=== PATIENT | female | born 1930 | race Caucasian/White ===

== ENCOUNTER → 2016-11-21 | Outpatient (CLI) | payer MEDICARE, BC ==
[~2016-11-21] MED LIST: ADVAIR 250/501 EA INH; ADVAIR INH; ALEVE220 M1 PO; ATENOLOL25 MG PO; B COMPLEX1 EACH PO; B12100 MC1 PO; BENADRYL ALLERG25 M5 PO; BIOTIN5000 MCG PO; BLOOD PRESSURE MED; BUMETANIDE1 MG PO; BYSTOLIC5 MG PO; CO Q10100 MG PO; DIOVAN 12.5 MG-1 TAB PO; DIOVAN HCT 12.51 TA6 PO; DIOVAN160 MG PO; DULE1ARO1 INH; DUONEB 3 MG/3 ML3 M1 INH; FOLGARD TABLET1 EACH PO; GLUCOSAMINE1000 MG PO; HYDR12.5C PO; KEFLEX250 MG PO; LODINE200 MG PO; MELADOX3 MG PO; MUCINEX1200 MG PO; MULTIPLE VITAMI1 CAP PO; NEURONTIN300 MG PO; NORVASC5 MG PO; OMEGA-31000 M1 PO; PERCOCET 325 MG1 TA3 PO; PREDNISONE20 MG PO; PROTONIX40 MG PO; Quinapril HCl20 MG PO; TUMERIC PO; VITAMIN D2000 IU PO; VOLTAREN50 M1 PO; ZYRTEC10 MG PO
== END | disposition home or self-care (01) ==
LOC: LAB 16:14 → RAD 16:14
DX: M19.032 Primary osteoarthritis, left wrist (principal); M19.031 Primary osteoarthritis, right wrist

== ENCOUNTER → 2017-02-14 | Outpatient (CLI) | payer MEDICARE, BC ==
[2017-02-14 14:15] LABS: HEMATOCRIT 39.3 % (37.0-47.0); HEMOGLOBIN 13.4 g/dl (12.0-16.0); MEAN CELL VOLUME 83.8 fl (81.0-99.0); MEAN CORPUSCULAR HGB 28.6 pg (27.0-31.0); MEAN CORPUSCULAR HGB CONC 34.1 g/dl (33.0-37.0); MEAN PLATELET VOLUME 9.8 fl (9.6-12.3); PLATELET COUNT AUTOMATED 116 10*3/uL (130-400); RED BLOOD COUNT 4.69 10*6/uL (4.10-5.10); RED CELL DISTRI WIDTH 14.4 % (0-14.5); WHITE BLOOD COUNT 3.4 10*3/uL (4.8-10.8)
[2017-02-14 14:26] LABS: BUN 8 mg/dl (7-24); CHLORIDE 90 mmol/L (98-107); CREATININE 0.57 mg/dL (0.55-1.02); POTASSIUM 3.6 mmol/L (3.5-5.1); SODIUM 128 mmol/L (136-145)
[2017-02-14 14:34] LABS: ATYPICAL LYMPHS 3 % (0-0); TOTAL CELLS COUNTED 100 #CELLS
[2017-02-14 14:35] LABS: OVALOCYTES FEW; PLATELET SUFFICIENCY LOW (NORMAL)
== END | disposition home or self-care (01) ==
LOC: LAB 13:49
PROVIDERS: Family Medicine
DX: J06.9 Acute upper respiratory infection, unspecified (principal); I70.0 Atherosclerosis of aorta; J43.9 Emphysema, unspecified; Z95.0 Presence of cardiac pacemaker

== ENCOUNTER → 2017-04-06 | Outpatient (CLI) | payer MEDICARE, BC ==
[2017-04-06 18:44] LABS: BASO % 0.3 % (0.0-1.0); EOS # 0.1 10*3/uL (0.0-0.4); EOS % 1.1 % (1.0-4.0); HEMATOCRIT 37.3 % (37.0-47.0); HEMOGLOBIN 11.8 g/dl (12.0-16.0); LYMPH # 2.4 10*3/uL (1.3-4.4); LYMPH % 36.5 % (27.0-41.0); MEAN CELL VOLUME 91.9 fl (81.0-99.0); MEAN CORPUSCULAR HGB 29.1 pg (27.0-31.0); MEAN CORPUSCULAR HGB CONC 31.6 g/dl (33.0-37.0); MEAN PLATELET VOLUME 10.3 fl (9.6-12.3); MONO # 0.5 10*3/uL (0.1-1.0); MONO % 6.9 % (3.0-9.0); NEUT # 3.7 10*3/uL (2.3-7.9); PLATELET COUNT AUTOMATED 167 10*3/uL (130-400); RED BLOOD COUNT 4.06 10*6/uL (4.10-5.10); RED CELL DISTRI WIDTH 15.3 % (0-14.5); WHITE BLOOD COUNT 6.6 10*3/uL (4.8-10.8)
[2017-04-06 19:01] LABS: ALBUMIN 3.8 gm/dl (3.1-4.5); ALKALINE PHOSPHATASE 53 U/L (45-117); BILIRUBIN, DIRECT 0.1 mg/dL (0.0-0.2); BUN 16 mg/dl (7-24); CHLORIDE 103 mmol/L (98-107); CREATININE 0.75 mg/dL (0.55-1.02); SGOT/AST 17 IU/L (3-35); SGPT/ALT 17 U/L (12-78); SODIUM 141 mmol/L (136-145); TOTAL PROTEIN 7.4 gm/dL (6.4-8.2)
== END | disposition home or self-care (01) ==
LOC: LAB 18:18
PROVIDERS: Family Medicine
DX: M47.896 Other spondylosis, lumbar region (principal); M16.12 Unilateral primary osteoarthritis, left hip; R73.9 Hyperglycemia, unspecified

== ENCOUNTER → 2017-11-06 | Outpatient (CLI) | payer MEDICARE, BC ==
[2017-11-06 16:30] LABS: BASO % 0.3 % (0.0-1.0); EOS # 0.1 10*3/uL (0.0-0.4); EOS % 1.8 % (1.0-4.0); HEMATOCRIT 36.2 % (37.0-47.0); HEMOGLOBIN 10.8 g/dl (12.0-16.0); LYMPH # 1.9 10*3/uL (1.3-4.4); LYMPH % 28.1 % (27.0-41.0); MEAN CELL VOLUME 94.5 fl (81.0-99.0); MEAN CORPUSCULAR HGB 28.2 pg (27.0-31.0); MEAN CORPUSCULAR HGB CONC 29.8 g/dl (33.0-37.0); MEAN PLATELET VOLUME 10.4 fl (9.6-12.3); MONO # 0.5 10*3/uL (0.1-1.0); MONO % 6.9 % (3.0-9.0); NEUT # 4.3 10*3/uL (2.3-7.9); NEUT % 62.8 % (47.0-73.0); PLATELET COUNT AUTOMATED 119 10*3/uL (130-400); RED BLOOD COUNT 3.83 10*6/uL (4.10-5.10); RED CELL DISTRI WIDTH 14.8 % (0-14.5); WHITE BLOOD COUNT 6.8 10*3/uL (4.8-10.8)
[2017-11-06 16:45] LABS: ALBUMIN 3.5 gm/dl (3.1-4.5); ALKALINE PHOSPHATASE 49 U/L (45-117); BILIRUBIN, DIRECT 0.1 mg/dL (0.0-0.2); BUN 16 mg/dl (7-24); CHLORIDE 102 mmol/L (98-107); CREATININE 0.67 mg/dL (0.55-1.02); POTASSIUM 4.4 mmol/L (3.5-5.1); SGOT/AST 12 IU/L (3-35); SGPT/ALT 16 U/L (12-78); SODIUM 139 mmol/L (136-145); TOTAL PROTEIN 6.6 gm/dL (6.4-8.2)
== END | disposition home or self-care (01) ==
LOC: LAB 15:52
PROVIDERS: Family Medicine
DX: K63.9 Disease of intestine, unspecified (principal); K59.00 Constipation, unspecified; I10 Essential (primary) hypertension; J44.9 Chronic obstructive pulmonary disease, unspecified

== ENCOUNTER → 2017-11-25 | Outpatient (CLI) | payer MEDICARE, BC | END | disposition home or self-care (01) | LOC: NM 08:59 | DX: M54.5 Low back pain (principal); M16.12 Unilateral primary osteoarthritis, left hip; M54.32 Sciatica, left side; M60.88 Other myositis, other site ==

== ENCOUNTER → 2017-11-27 | Outpatient (CLI) | payer MEDICARE, BC | END | disposition home or self-care (01) | LOC: CT 11:00 | DX: K45.8 Other specified abdominal hernia without obstruction or gangrene (principal); I25.10 Atherosclerotic heart disease of native coronary artery without angina pectoris ==

== ENCOUNTER → 2018-11-01 | Outpatient (CLI) | payer MEDICARE, BC ==
[2018-11-01 17:35] LABS: THYROXINE (T4) TOTAL 7.3 ug/dl (4.8-13.9)
[2018-11-01 17:40] LABS: THYROID STIM HORMONE (HS) 1.48 uIU/ml (0.358-4.75)
== END | disposition home or self-care (01) ==
LOC: LAB 16:30
PROVIDERS: Family Medicine
DX: E23.3 Hypothalamic dysfunction, not elsewhere classified (principal); E03.9 Hypothyroidism, unspecified; E55.9 Vitamin D deficiency, unspecified

== ENCOUNTER → 2019-03-07 | Outpatient (CLI) | payer MEDICARE, BC | END | disposition home or self-care (01) | LOC: CARD 02-17 13:00 | DX: I48.91 Unspecified atrial fibrillation (principal); I10 Essential (primary) hypertension; Z79.899 Other long term (current) drug therapy ==

== ENCOUNTER → 2019-08-02 | Outpatient (CLI) | payer MEDICARE, BC ==
[2019-08-02 14:46] LABS: HEMATOCRIT 36.7 % (37.0-47.0); MEAN CELL VOLUME 94.3 fl (81.0-99.0); MEAN CORPUSCULAR HGB 29.3 pg (27.0-31.0); MEAN CORPUSCULAR HGB CONC 31.1 g/dl (33.0-37.0); MEAN PLATELET VOLUME 10.8 fl (9.6-12.3); RED BLOOD COUNT 3.89 10*6/uL (4.10-5.10); RED CELL DISTRI WIDTH 14.3 % (0-14.5)
[2019-08-02 15:17] LABS: ALBUMIN 3.3 gm/dl (3.1-4.5); BILIRUBIN, DIRECT 0.2 mg/dL (0.0-0.2); BUN 11 mg/dl (7-24); CHLORIDE 102 mmol/L (98-107); CHOLESTEROL 149 mg/dL (<200); CREATININE 0.43 mg/dL (0.55-1.02); HDL CHOLESTEROL 61 mg/dl (40-60); POTASSIUM 4.1 mmol/L (3.5-5.1); SGOT/AST 15 IU/L (3-35); SGPT/ALT 20 U/L (12-78); SODIUM 139 mmol/L (136-145); THYROXINE (T4) TOTAL 6.4 ug/dl (4.8-13.9); TOTAL PROTEIN 7.1 gm/dL (6.4-8.2)
[2019-08-02 15:23] LABS: ALKALINE PHOSPHATASE 49 U/L (45-117); LDL CHOLESTEROL 75 mg/dL (9-159); THYROID STIM HORMONE (HS) 0.219 uIU/ml (0.358-4.75); TRIGLYCERIDES 66 mg/dl (<150); VLDL CHOLESTEROL 13 mg/dL (6-40)
== END | disposition home or self-care (01) ==
LOC: LAB 13:55
PROVIDERS: Family Medicine
DX: I10 Essential (primary) hypertension (principal); E55.9 Vitamin D deficiency, unspecified; E03.9 Hypothyroidism, unspecified; Z79.899 Other long term (current) drug therapy

== ENCOUNTER → 2019-08-17 | Outpatient (CLI) | payer MEDICARE, BC | LOC: RAD 16:59 | DX: M25.551 Pain in right hip (principal) ==

== ENCOUNTER → 2019-10-21 | Outpatient (CLI) | payer MEDICARE, BC | LOC: RAD 14:33 | PROVIDERS: ATTEND Family Medicine | DX: M47.812 Spondylosis without myelopathy or radiculopathy, cervical region (principal); M48.02 Spinal stenosis, cervical region ==

== ENCOUNTER 2020-10-21 19:33 | Emergency (ER) | payer MEDICARE, BC ==
[~2020-10-21] VITALS: Ht 157.4 cm; Wt 68.9 kg
== END 2020-10-21 21:07 | disposition home or self-care (01) ==
LOC: ED 19:33
DX: M10.9 Gout, unspecified (principal); Z87.891 Personal history of nicotine dependence; Z98.890 Other specified postprocedural states; Z88.1 Allergy status to other antibiotic agents; Z88.7 Allergy status to serum and vaccine

== ENCOUNTER 2020-11-02 15:01 | Inpatient (IN) | payer MEDICARE, BC ==
[~2020-11-02] VITALS: Ht 165 cm; Wt 60.0 kg
[2020-11-02 15:08] VITALS: BP 120/68
[2020-11-02 16:32] LABS: BASO % 0.2 % (0.0-1.0); EOS % 0.2 % (1.0-4.0); HEMATOCRIT 36.8 % (37.0-47.0); LYMPH # 1.1 10*3/uL (1.3-4.4); MEAN CELL VOLUME 102.2 fl (81.0-99.0); MEAN CORPUSCULAR HGB 29.7 pg (27.0-31.0); MEAN CORPUSCULAR HGB CONC 29.1 g/dl (33.0-37.0); MEAN PLATELET VOLUME 10.6 fl (9.6-12.3); MONO # 0.5 10*3/uL (0.1-1.0); MONO % 7.2 % (3.0-9.0); NEUT # 4.7 10*3/uL (2.3-7.9); NEUT % 74.8 % (47.0-73.0); PLATELET COUNT AUTOMATED 110 10*3/uL (130-400); RED CELL DISTRI WIDTH 16.2 % (0-14.5); WHITE BLOOD COUNT 6.2 10*3/uL (4.8-10.8)
[2020-11-02 16:51] LABS: ALBUMIN 3.5 gm/dl (3.1-4.5); ALKALINE PHOSPHATASE 62 U/L (45-117); BUN 21 mg/dl (7-24); CHLORIDE 103 mmol/L (98-107); CREATININE 0.58 mg/dL (0.55-1.02); LIPASE 26 U/L (73-393); POTASSIUM 4.5 mmol/L (3.5-5.1); SGOT/AST 24 IU/L (3-35); SGPT/ALT 22 U/L (12-78); SODIUM 139 mmol/L (136-145)
[2020-11-02 17:00] VITALS: BP 136/82
[2020-11-02 17:01] LABS: TROPONIN I 0.319 ng/ml (<0.045)
[2020-11-02 17:57] LABS: BILIRUBIN Negative (Negative); BLOOD Negative (Negative); CLARITY Clear (Clear); COLOR Yellow (Yellow); GLUCOSE Negative (Negative); KETONE Negative (Negative); LEUKO ESTERASE Negative (Negative); NITRITE Negative (Negative); SPECIFIC GRAVITY 1.015 (1.001-1.030); UROBILINOGEN 0.2 E.U./dl (0.0-1.0)
[2020-11-02 18:12] LABS: RBC 0-2 rbc/hpf (0-2); WBC 0-2 wbc/hpf (0-5)
[2020-11-02 18:30] VITALS: BP 130/68
[2020-11-02 20:22] LABS: ABG BASE EXCESS 2.5 mmol/L (-2.0-2.0); ARTERIAL BLOOD GAS PH 7.266 (7.35-7.45); ARTERIAL BLOOD GAS PO2 241.7 (80-90)
[2020-11-03 01:49] VITALS: BP 132/63
[2020-11-03] MEDS ORDERED: ALLOPURINOL300 MG PO (01:52)
[2020-11-03] MEDS ORDERED: ARMOUR THYROID90 M1 PO (01:52)
[2020-11-03] MEDS ORDERED: OXYCODONE HCL5 MG PO (01:53)
[2020-11-03 06:17] LABS: BUN 22 mg/dl (7-24)
[2020-11-03 06:19] LABS: BASO % 0.2 % (0.0-1.0); HEMATOCRIT 38.2 % (37.0-47.0); LYMPH # 0.3 10*3/uL (1.3-4.4); LYMPH % 7.1 % (27.0-41.0); MEAN CELL VOLUME 101.9 fl (81.0-99.0); MEAN CORPUSCULAR HGB 29.3 pg (27.0-31.0); MEAN CORPUSCULAR HGB CONC 28.8 g/dl (33.0-37.0); MONO % 0.8 % (3.0-9.0); NEUT # 4.3 10*3/uL (2.3-7.9); NEUT % 89.8 % (47.0-73.0); PLATELET COUNT AUTOMATED 86 10*3/uL (130-400); RED BLOOD COUNT 3.75 10*6/uL (4.10-5.10); RED CELL DISTRI WIDTH 15.9 % (0-14.5); WHITE BLOOD COUNT 4.8 10*3/uL (4.8-10.8)
[2020-11-03 06:35] LABS: ACT PARTIAL THROMBO TIME 35.3 SECONDS (20.0-32.1)
[2020-11-03 06:52] LABS: ALBUMIN 3.1 gm/dl (3.1-4.5); ALKALINE PHOSPHATASE 62 U/L (45-117); CHLORIDE 105 mmol/L (98-107); CREATININE 0.35 mg/dL (0.55-1.02); POTASSIUM 4.8 mmol/L (3.5-5.1); SGOT/AST 58 IU/L (3-35); SGPT/ALT 45 U/L (12-78); SODIUM 141 mmol/L (136-145); TOTAL PROTEIN 6.1 gm/dL (6.4-8.2)
[2020-11-03] MEDS ORDERED: ASPIRIN CHILDRE81 MG PO (11:17)
== END 2020-11-03 12:36 | disposition home or self-care (01) | DRG 280 ==
LOC: ED 15:01 → EDHOLD 18:43
PROVIDERS: Emergency Medicine; Hospitalist; ADMIT Internal Medicine; ATTEND Internal Medicine
DX: I21.4 Non-ST elevation (NSTEMI) myocardial infarction (principal); G93.41 Metabolic encephalopathy; J96.22 Acute and chronic respiratory failure with hypercapnia; J44.1 Chronic obstructive pulmonary disease with (acute) exacerbation; D69.6 Thrombocytopenia, unspecified; D53.9 Nutritional anemia, unspecified; R73.9 Hyperglycemia, unspecified; M1A.9XX0 Chronic gout, unspecified, without tophus (tophi); I50.9 Heart failure, unspecified; I11.0 Hypertensive heart disease with heart failure; W19.XXXA Unspecified fall, initial encounter; E86.0 Dehydration; H40.9 Unspecified glaucoma; K76.0 Fatty (change of) liver, not elsewhere classified; Z88.1 Allergy status to other antibiotic agents; Z88.7 Allergy status to serum and vaccine; Z88.8 Allergy status to other drugs, medicaments and biological substances; Z90.49 Acquired absence of other specified parts of digestive tract; Z87.891 Personal history of nicotine dependence; Z99.81 Dependence on supplemental oxygen; Z82.49 Family history of ischemic heart disease and other diseases of the circulatory system; Z79.82 Long term (current) use of aspirin; Y93.89 Activity, other specified; Y92.008 Other place in unspecified non-institutional (private) residence as the place of occurrence of the external cause; Y99.8 Other external cause status

== ENCOUNTER → 2021-01-31 | Outpatient (CLI) | payer MEDICARE, BC ==
[~2021-01-31] MED LIST changes: +ALLOPURINOL300 MG PO; +ARMOUR THYROID90 M1 PO; +ASPIRIN CHILDRE81 MG PO; +OXYCODONE HCL5 MG PO
== END | disposition home or self-care (01) ==
LOC: US 11:30
PROVIDERS: ATTEND Family Medicine
DX: I82.401 Acute embolism and thrombosis of unspecified deep veins of right lower extremity (principal); R60.0 Localized edema

== ENCOUNTER 2021-09-11 04:08 | Emergency (ER) | payer MEDICARE, BC ==
[~2021-09-11 04:08] MED LIST changes: +ALBUTEROL2.5 MG/0.5 INH; +ATIVAN1 MG PO; +CARDIZEM30 MG PO; +DECADRON6 M1 PO; +DEXAMETHASONE4 MG PO; +DULCOLAX10 M1 R; +ELIQUIS5 M1 PEG; +ELIQUIS5 M1 PO; +FLEET ENEMA EX230 M1 R; +K-TAB20 MEQ PO; +LASIX40 MG PO; +LOPRESSOR25 MG PO; +LOPRESSOR50 M1 PO; +OMNICEF300 MG PO; +PEPCID20 MG PO; +PERCOCET 5-3251 EACH PO; +POTASSIUM CHLO20 ME3 PO; +PREDNISONE10 MG PO; +PROAIR HFA8.5 GM INH; +RESTORIL15 MG PO; +VAZALORE81 MG PO; +VENLAFAXINE H37.5 M2 PEG; +VENLAFAXINE H37.5 M5 PO; +VITAMIN D3125 MCG PO; +ZITHROMAX250 MG PO
== END 2021-09-11 04:38 ==
LOC: ED 04:08
DX: R06.02 Shortness of breath (principal); Z87.891 Personal history of nicotine dependence; Z90.49 Acquired absence of other specified parts of digestive tract; Z98.890 Other specified postprocedural states; Z79.899 Other long term (current) drug therapy; Z88.7 Allergy status to serum and vaccine; Z88.1 Allergy status to other antibiotic agents; Z88.8 Allergy status to other drugs, medicaments and biological substances

== ENCOUNTER → 2021-11-22 | Outpatient (CLI) | payer MEDICARE, BC ==
[~2021-11-22] MED LIST changes: +AMBIEN5 MG PO; +Carafate1 GM PO; +ELIQUIS2.5 M1 PO; +METOPROLOL25 MG PO; +OXYCODONE HCL5 M1 PO; +PANTOPRAZOLE SO40 MG PO; +PREMIERPRO RX ME1 GM IV; +Percocet 325 MG1 TAB PO; +VENLAFAXINE H37.5 M2 PO; +ZOLPIDEM TART5 MG PO
[2021-11-22 16:20] LABS: BUN 29 mg/dl (7-24); CHLORIDE 100 mmol/L (98-107); POTASSIUM 4.1 mmol/L (3.5-5.1); SODIUM 139 mmol/L (136-145)
[2021-11-22 16:26] LABS: MEAN CORPUSCULAR HGB 32.9 pg (27.0-31.0); MEAN CORPUSCULAR HGB CONC 31.6 g/dl (33.0-37.0); MEAN PLATELET VOLUME 11.8 fl (9.6-12.3); PLATELET COUNT AUTOMATED 92 10*3/uL (130-400); RED BLOOD COUNT 2.98 10*6/uL (4.10-5.10); RED CELL DISTRI WIDTH 18.6 % (0-14.5); WHITE BLOOD COUNT 5.2 10*3/uL (4.8-10.8)
[2021-11-22 16:28] LABS: MANUAL DIFF REFLEX YES
[2021-11-22 16:43] LABS: ABG BASE EXCESS 11.1 mmol/L (-2.0-2.0); ARTERIAL BLOOD GAS PH 7.468 (7.35-7.45); ARTERIAL BLOOD GAS PO2 97.5 (80-90)
[2021-11-22 17:02] LABS: PLATELET SUFFICIENCY LOW (NORMAL); TOTAL CELLS COUNTED 100 #CELLS
[2021-11-22 17:03] LABS: POLYCHROMASIA SLIGHT
== END | disposition home or self-care (01) ==
LOC: LAB 15:48
PROVIDERS: ATTEND Internal Medicine
DX: I11.0 Hypertensive heart disease with heart failure (principal); I50.9 Heart failure, unspecified; J44.9 Chronic obstructive pulmonary disease, unspecified